=== PATIENT | male | born 1970 | race Two or more races ===

== ENCOUNTER 2024-11-13 00:47 | Emergency (ER) | payer OTHER, SELFPAY ==
[2024-11-13 00:48] VITALS: BMI 30.5
[2024-11-13 01:23] VITALS: BP 156/105; PULSE 79; RESP 17; TEMP 37.2; O2SAT 96
[2024-11-13 01:54] LABS: Lactate (Lactic Acid) 1.3 mMol/L (0.4-2.0)
[2024-11-13 01:55] LABS: Base Excess, Venous 1 (-3-3); O2 Saturation, Venous 53 % (96-97); PCO2, Venous 51 mmHg (36-56); PO2, Venous 29 mmHg (15-58); pH, Venous 7.35 (7.33-7.66)
[2024-11-13 01:57] LABS: Basophils # (Auto) 0.1 Thou/mm3 (0.0-0.2); Basophils % (Auto) 1 % (0-2.5); Eosinophils # (Auto) 0.3 Thou/mm3 (0.0-0.5); Eosinophils % (Auto) 3 % (0-10); Hematocrit 47.5 % (41.0-53.0); Hemoglobin 16.9 g/dL (13.5-16.0); Immature Granulocytes Auto 0.04 Thou/mm3 (0.00-0.00); Lymphocytes # (Auto) 2.5 Thou/mm3 (1.0-4.8); Lymphocytes % (Auto) 30 % (10-50); Mean Corpuscular HGB Conc 35.6 g/dl (31.0-37.0); Mean Corpuscular Hemoglobin 31.8 pg (25.0-35.0); Mean Corpuscular Volume 89 fL (80-100); Monocytes # (Auto) 0.8 Thou/mm3 (0.0-0.8); Monocytes % (Auto) 10 % (0-12); Neutrophils # (Auto) 4.6 Thou/mm3 (1.8-7.7); Neutrophils % (Auto) 56 % (37-80); Nucleated Red Blood Cell # 0.00 Thou/mm3 (0.00-0.00); Nucleated Red Blood Cell % 0 /100 WBC (0); Platelet Count 274 Thou/mm3 (140-440); RDW Standard Deviation 42.1 fL (35.1-43.9); Red Blood Count 5.32 Miln/mm3 (4.50-5.90); White Blood Count 8.2 Thou/mm3 (3.8-10.6)
[2024-11-13] MEDS: INSULIN HUM REGULAR 1 UNIT/0.01 ML (PER UNIT) 10 UNIT SC (01:57)
[2024-11-13 01:58] LABS: Beta Hydroxybutyrate 0.5 mmol/L (<0.6)
--- NOTE | 2024-11-13 01:58 | PD.EDRECHK ---
ED Recheck Abnl Lab Rx-RME/HPI General Chief Complaint: General Adult/Misc Complain Stated Complaint: BLOOD SUGAR HIGH Time Seen by Provider: 11/13/24 01:25 Arrival date/time: 11/13/24 00:47 RME / HPI RME / HPI narrative: See [facility] for Dr. Wallace's HPI documentation. Related Data Previous Rx's ?Medication ?Instructions ?Recorded atorvastatin 40 mg tablet 40 mg PO QDAY #30 tabs 08/11/21 blood sugar diagnostic (Contour #100 ea 08/11/21 Test Strips) insulin glargine 100 unit/mL (3 15 unit (0.15 mL) subcut BID #15 mL 08/11/21 mL) subcutaneous pen (Lantus Solostar U-100 Insulin) lancets (Microlet Lancet) #200 ea 08/11/21 sitagliptin phosphate 50 1 tab PO BID #60 tabs 11/13/24 mg-metformin 500 mg tablet (Janumet) Allergies Allergy/AdvReac Type Severity Reaction Status Date / Time No Known Allergies Allergy Verified 11/13/24 00:48 Review of Systems Review of Systems Systems Reviewed: All systems reviewed, normal except as documented Past Medical History Past Medical History NEUROLOGIC: Negative Neurological Disorders CARDIAC: Positive Hypercholesterolemia; Negative Congestive Heart Failure or Hypertension RESPIRATORY: Negative Chronic Obstructive Pulmonary Disease (COPD) GENITOURINARY: Negative Genitourinary Disorders or Renal Disease MUSCULOSKELETAL: Negative Musculoskeletal Disorders ENT: Negative Glaucoma ENDOCRINE: Negative Diabetes Mellitus Type 1 or Diabetes Mellitus Type 2 HEMATOLOGIC: Negative Blood Disorders Social History SMOKING STATUS: Current some day smoker ED Exam Narrative Physical exam: See [facility] for Dr. Wallace's physical exam documentation. Course Quality Measures none Orders Category Date Time Status Bedside COVID-19 Antigen Test NOW Care 11/13/24 02:06 Active Bedside Influenza A&B Antigen Test NOW Care 11/13/24 02:06 Completed Glucose [Bedside Blood Glucose] NOW Care 11/13/24 00:56 Active Glucose [Bedside Blood Glucose] NOW Care 11/13/24 02:52 Active Saline [Insert IV] NOW Care 11/13/24 02:06 Active Straight [In and Out Catheter] X1 Care 11/13/24 02:06 Active Alcohol, Blood Medical Stat Lab 11/13/24 01:30 Completed Beta Hydroxybutyrate Stat Lab 11/13/24 01:30 Completed Bilirubin,Direct Stat Lab 11/13/24 01:30 Completed CBC Stat Lab 11/13/24 01:30 Completed CMP [Comprehensive Metabolic Panel] Stat Lab 11/13/24 01:30 Completed CRP [C-Reactive Protein] Stat Lab 11/13/24 01:30 Completed Drug Screen,Urine Stat Lab 11/13/24 02:04 Completed ESR [Sed Rate (ESR)] Stat Lab 11/13/24 01:30 Completed Hemoglobin A1C [Glycohemoglobin w (eAG)] Stat Lab 11/13/24 01:30 Completed Lactate (Lactic Acid) Stat Lab 11/13/24 01:30 Completed Magnesium Stat Lab 11/13/24 01:30 Completed Procalcitonin Stat Lab 11/13/24 01:30 Completed TSH [Thyroid Stimulating Hormone] Stat Lab 11/13/24 01:30 Completed UA, C/S IF [Urinalysis, C/S if Indicated] Stat Lab 11/13/24 02:04 Completed VBG [Venous Blood Gas] Stat Lab 11/13/24 01:30 Completed Insulin Regular Med 11/13/24 01:25 Discontinued 10 unit SC X1 ONE Insulin Regular Med 11/13/24 03:29 Discontinued 5 unit IV X1 ONE Sodium Chloride 0.9% 1000 ml [Ns] 1,000 ml Med 11/13/24 02:06 Discontinued IV 999 mls/hr Vital Signs Vital signs: Vital Signs Temperature 98.9 F 11/13/24 01:23 Pulse Rate 79 11/13/24 01:23 Respiratory Rate 17 11/13/24 01:23 Blood Pressure 156/105 H 11/13/24 01:23 Pulse Oximetry (%) 96 11/13/24 01:23 Oxygen Delivery Method Room Air 11/13/24 01:23 Recheck / Abnormal Lab / Rx MDM Narrative MDM Narrative:: This section includes all my notes and documentations, including HPI, PE, and ED course. Nilesh Wallace MD HPI: 54yo male with history of DM here with elevated blood sugar levels. Patient's blood sugar monitor read as high at home just RECEP. No nausea, vomiting, abdominal pain, or chest pain. Reports several days of polyuria and polydipsia and polyphagia. No other complaints. ROS: All negative except as documented in HPI. Physical Exam: General: Alert and oriented. No acute distress when remaining still. Eyes: Conjunctivae and lids clear. ENT: No nasal congestion. Neck: Supple. Heart: RRR. Lungs: No respiratory distress. Good air movement. No rhonchi, wheezing, rales. Abdomen: Soft and nontender. Skin: Warm and dry. Neuro: Alert and oriented X 3. I reviewed all diagnostic test results. Blood and urine tests remarkable for Glucose 463, A1c 10.6. COVID/Influenza negative. At this point, diagnoses include: Hyperglycemia due to diabetes mellitus Treatment here included: Insulin 10 units SC Insulin 5 units IV IV fluid Significant improvement noted. Recommended more outpatient care. Based on my best medical judgment, made decision no further evaluation or treatment indicated at this time. Patient understands and agrees to the discharge instructions customized and printed, see below. Discharge Instructions from Dr. Wallace printed for you: 1. After evaluation, you were treated for high sugar level due to poorly controlled diabetes. 2. To help prevent severe complications, take Janumet as prescribed. 3. See a private doctor on 11/14/2024 for recheck and further care. Ask to review all test results and official radiology reports, to make sure you receive all necessary follow-ups and monitoring. Ask to help you stay healthy, with good management of your diabetes, helping you to prevent future heart attacks and strokes, and with regular physical exam and health maintenance. 4. Seek immediate medical care with worsening or with any concerns. Nilesh Wallace MD Patient data External records reviewed:: [facility] previous records Clinical information provided by:: patient Social determinants that could affect healthcare access:: none Patient has the following chronic illnesses:: DM How is presenting disease/condition affected by chronic disease/condition?: caused by Evaluation data The following diagnostics were reviewed and interpreted by me:: lab results Lab and/or radiology exams considered but not ordered:: none Interpretation Summary: I reviewed all diagnostic test results. Blood and urine tests remarkable for Glucose 463, A1c 10.6. COVID/Influenza negative. Medications / Prescriptions Medications or Prescriptions considered but not ordered:: none Medication administrations:: Medication Administration History Discontinued Medications Sodium Chloride (Ns) 1,000 mls @ 999 mls/hr IV .Q1H1M ONE Stop: 11/13/24 03:06 Last Infusion: 11/13/24 04:16 Dose: Infused Documented By: [email or web address] Admin: 11/13/24 02:44 Dose: 999 mls/hr Documented By: PALLAVI Insulin Human Regular (Insulin Hum Regular 1 Unit/0.01 Ml (Per Unit)) 10 unit SC X1 ONE Stop: 11/13/24 01:26 Last Admin: 11/13/24 01:57 Dose: 10 unit Documented By: TOM Co-signed By: LUCIA Insulin Human Regular (Insulin Hum Regular 1 Unit/0.01 Ml (Per Unit)) 5 unit IV X1 ONE Stop: 11/13/24 03:30 Last Admin: 11/13/24 04:20 Dose: 5 unit Documented By: YOGI Co-signed By: KELBY Treatment here included: Insulin 10 units SC Insulin 5 units IV IV fluid Consultations Consultation(s) initiated? (list below): No Diagnosis Recheck Differential Diagnosis: other (Hyperglycemia, DKA, dehydration, electrolyte abnormalities, UTI, sepsis) Most likely diagnosis given after review of the tests above:: Hyperglycemia due to diabetes mellitus Admission Indicated Admission indicated?: not indicated Explain why admission is indicated or not indicated:: With significant improvement and no condition needing emergent intervention, there was no indication for admission. Admission Request Was there a request for admission?: No Disposition Plan Disposition Plan: Discharge Discharge Attestation Discharge Attestation: The patient and all family members were given an opportunity to ask questions and understood the discharge instructions. Discharge instructions specifically effects, indications for sooner follow up or return to the emergency department, and the expected course of current diagnosis. Patient condition: Stable Discharge Plan Plan Patient Disposition: HOME (Self Care) Prescriptions/Referrals Prescriptions/Med Rec: New Janumet 50-500 mg tablet 1 tab PO BID Qty: 60 2RF No Action atorvastatin 40 mg tablet 40 mg PO QDAY Qty: 30 0RF (DME) Contour Test Strips Strip See Rx Instructions .Route Qty: 100 0RF Rx Instructions: As directed (DME) lancets [Microlet Lancet] Misc See Rx Instructions .Route Qty: 200 0RF Rx Instructions: As directed insulin glargine [Lantus Solostar U-100 Insulin] 100 unit/mL (3 mL) insulin pen 15 unit subcut BID Qty: 15 0RF [facility]: [facility]MD [Primary Care Provider, Family Practice] - In 1 week Problem List Clinical Impression: Hyperglycemia due to diabetes mellitus Patient/Caregiver Discharge Instructions Discharge Activity: activity as tolerated Education Materials: ED Diabetes- Overview, ED Diabetes with High Blood Sugar Additional Instructions: Discharge Instructions from Dr. Wallace printed for you: 1. After evaluation, you were treated for high sugar level due to poorly controlled diabetes. 2. To help prevent severe complications, take Janumet as prescribed. 3. See a private doctor on 11/14/2024 for recheck and further care. Ask to review all test results and official radiology reports, to make sure you receive all necessary follow-ups and monitoring. Ask to help you stay healthy, with good management of your diabetes, helping you to prevent future heart attacks and strokes, and with regular physical exam and health maintenance. 4. Seek immediate medical care with worsening or with any concerns. Print Language: Nepali Stand Alone Forms: [employer]ika Award Info., Patient Portal Info Letter
[2024-11-13 02:07] LABS: Glucose Estimated Average 258 mg/dL (80-131); Hemoglobin A1C 10.6 % Hgb (4.8-6.0)
[2024-11-13 02:10] LABS: Collection Type, Urine Clean Catch
[2024-11-13 02:24] LABS: Alanine Aminotransferase 17 U/L (10-49); Albumin, Serum 4.6 gm/dL (3.5-5.0); Albumin/Globulin Ratio 2.0 (1.2-2.2); Alcohol, Blood Medical < 3.0 mg/dL (0-10.0); Alkaline Phosphatase 155 U/L (46-116); Anion Gap 12 (7-16); Aspartate Amino Transferase < 10 U/L (0-34); BUN/Creatinine Ratio 9 Ratio (12-20); Bilirubin,Direct 0.1 mg/dL (0.0-0.3); Bilirubin,Total 0.5 mg/dL (0.3-1.2); Blood Urea Nitrogen 12 mg/dL (9-23); C-Reactive Protein < 0.5 mg/dL (0.0-0.9); Calcium 10.3 mg/dL (8.3-10.6); Calcium (Corrected) 10.3 mg/dL (8.5-10.1); Carbon Dioxide 26.3 mMol/L (20.0-31.0); Chloride 100 mMol/L (98-107); Creatinine (Component) 1.3 mg/dL (0.6-1.3); Estimated Creatinine Clearance 68.1 mL/min (>60); Globulin 2.3 gm/dL (2.3-3.5); Magnesium 1.7 mg/dL (1.6-2.6); Osmolality,Calculated 295 (275-295); Potassium 3.9 mMol/L (3.4-5.1); Procalcitonin 0.06 ng/ml (0.0-0.49); Sodium 138 mMol/L (136-145); Thyroid Stimulating Hormone 1.54 uIU/mL (0.55-4.78); Total Protein 6.9 gm/dL (5.7-8.2); eGFR > 60 See Note
[2024-11-13 02:26] LABS: Sed Rate (ESR) 11 mm/hr (0-20)
[2024-11-13 02:27] LABS: Bilirubin,Urine Negative (Negative); Blood,Urine Negative (Negative); Clarity,Urine Clear (Clear/Hazy); Color,Urine Colorless (Lt Yel-Yel); Culture Indicated,Urine Not Indicated; Glucose, Urine 4+ (Negative); Ketones,Urine 1+ (Negative); Leukocyte Esterase,Urine Negative (Negative); Nitrite,Urine Negative (Negative); PH,Urine 6.0 (5.0-7.0); Protein,Urine Negative (Neg - Trace); RBC,Urine 2 /hpf (0-3); Specific Gravity,Urine 1.045 (1.001-1.035); Squamous Epithelial Cell,Urine < 1 /hpf (0-5); Urobilinogen,Urine Negative mg/dL (0.0-1.0); WBC,Urine 1 /hpf (0-5)
[2024-11-13 02:28] LABS: Glucose 463 mg/dL (74-106)
[2024-11-13 02:31] LABS: Amphetamine/Methamp Scrn,U Negative (Negative); Barbiturate Screen,Urine Negative (Negative); Benzodiazepines Screen,Urine Negative (Negative); Benzoylecgonine Screen, Ur Negative (Negative); Fentanyl Screen,Urine Negative (Negative); Opiate Screen,Urine Negative (Negative); THC Screen,Urine Negative (Negative)
[2024-11-13] MEDS: SODIUM CHLORIDE 0.9% 1000 ML 1,000 ML 999 ML IV (02:44)
[2024-11-13 02:48] VITALS: BP 137/98; PULSE 72; RESP 18; TEMP 37; O2SAT 96
[2024-11-13] MEDS: INSULIN HUM REGULAR 1 UNIT/0.01 ML (PER UNIT) 5 UNIT IV (04:20)
== END 2024-11-13 04:50 | disposition home or self-care (01) ==
PROVIDERS: Emergency Provider Emergency Medicine; PCP Family Medicine
DX: E11.65 Type 2 diabetes mellitus with hyperglycemia (principal); Z79.84 Long term (current) use of oral hypoglycemic drugs
CPT/HCPCS: 36415; 80053; 80307; 80320; 81001; 82010; 82248; 82803; 83036; 83605; 83735; 84145; 84443; 85025; 85652; 86140; 87400; 87811; 96360; 96361; 99284; J1815; J7030; G0480

== ENCOUNTER → 2024-11-20 | Outpatient (CLI) | payer OTHER, SELFPAY ==
[2024-11-20 13:32] LABS: Creatinine MALB Rnd Ur 208 mg/dL (30-125); Microalbumin Creat Ratio 4 mg/gCrea (<30); Microalbumin, Random Urine 8 mg/L (0-300)
[2024-11-20 13:41] LABS: Alanine Aminotransferase 27 U/L (10-49); Albumin, Serum 4.6 gm/dL (3.5-5.0); Alkaline Phosphatase 107 U/L (46-116); Aspartate Amino Transferase 16 U/L (0-34); Bilirubin,Direct < 0.1 mg/dL (0.0-0.3); Bilirubin,Total 0.3 mg/dL (0.3-1.2); Cardiac Risk Estimate 6.0 RATIO (4.0-6.7); Cholesterol 199 mg/dL (132-200); Free T4 (Free Thyroxine) 1.39 ng/dL (0.89-1.76); HDL Cholesterol 33 mg/dL (40-60); LDL Cholesterol,Calculated 97 mg/dL (0-130); Thyroid Stimulating Hormone 1.52 uIU/mL (0.55-4.78); Total Protein 6.5 gm/dL (5.7-8.2); Triglycerides 347 mg/dL (30-150)
[2024-11-20 14:19] LABS: Hepatitis A Antibody IgM Non Reactive (Non React); Hepatitis B Core Antibody IgM Non Reactive (Non React); Hepatitis B Surface Antigen Non Reactive (Non React); Hepatitis C Antibody Non Reactive (Non React)
[2024-11-23 14:07] LABS: Gamma Glutamyl Transpeptidase* 43 U/L (3-85)
== END | disposition home or self-care (01) ==
LOC: COPL 12:02
PROVIDERS: PCP Nurse Practitioner; Referring Provider Nurse Practitioner; Visit Provider Nurse Practitioner
DX: E11.65 Type 2 diabetes mellitus with hyperglycemia (principal); E78.5 Hyperlipidemia, unspecified; R74.8 Abnormal levels of other serum enzymes; R53.83 Other fatigue
CPT/HCPCS: 36415; 80061; 80074; 80076; 82043; 82570; 82977; 84439; 84443

== ENCOUNTER → 2024-12-14 | Outpatient (CLI) | payer OTHER, SELFPAY ==
[2024-12-14 10:45] LABS: Alanine Aminotransferase 18 U/L (10-49); Albumin, Serum 4.7 gm/dL (3.5-5.0); Alkaline Phosphatase 113 U/L (46-116); Aspartate Amino Transferase 14 U/L (0-34); Bilirubin,Direct 0.2 mg/dL (0.0-0.3); Bilirubin,Total 0.7 mg/dL (0.3-1.2); Total Protein 6.4 gm/dL (5.7-8.2)
== END | disposition home or self-care (01) ==
LOC: COPL 09:49
PROVIDERS: PCP Family Medicine; Referring Provider Student in an Organized Health Care Education/Training Program; Visit Provider Student in an Organized Health Care Education/Training Program
DX: B35.1 Tinea unguium (principal)
CPT/HCPCS: 36415; 80076

== ENCOUNTER → 2025-01-09 | Outpatient (CLI) | payer OTHER, SELFPAY ==
--- NOTE | 2025-01-09 12:00 | XR_ITS ---
Examination: CT lung low dose screening, without contrast. 2-D sagittal reconstructions. 2-D coronal reconstructions. 3-D reconstructions. Date and time of exam: January 09, 2025, 12 0 2:00 p.m. INDICATIONS: Smoking history 40 years CTDI: vol (mGy): 13.9 DLP: (mGycm): 533 Technique: Multiple 1.25 mm axial sections of the thorax without intravenous contrast have been obtained. 2-D sagittal and coronal reconstructions have been obtained. 3-D reconstructions have been obtained. Low dose protocols were performed. One or more of the following dose reduction techniques were used; automated exposure control, adjustment of the mA and/or KV according to patient size, use of iterative reconstruction technique. Findings: No thoracic aortic aneurysm dilatation Pulmonary artery segments do not show significant enlargement No paratracheal or tracheobronchial bronchopulmonary adenopathy 5 mm pulmonary nodule lingular segment image 182 No pneumonia or pulmonary edema No visualized liver or splenic lesion No gallstones No pancreatic or adrenal mass No hydronephrosis Moderate osteopenia IMPRESSION: Recommend continued 6-month follow-up CT chest without contrast to document stability of 5 mm pulmonary nodule lingular segment left upper lobe
== END | disposition home or self-care (01) ==
PROVIDERS: PCP Student in an Organized Health Care Education/Training Program; Referring Provider Student in an Organized Health Care Education/Training Program; Visit Provider Student in an Organized Health Care Education/Training Program
DX: R91.1 Solitary pulmonary nodule (principal)
CPT/HCPCS: 71271